=== PATIENT | female | born 1960 | race Caucasian/White ===

== ENCOUNTER 2017-05-09 08:45 | Emergency (ER) | payer BC ==
[2017-05-09 09:01] VITALS: TEMP 97.7
[2017-05-09] MEDS ORDERED: SODIUM CHLORIDE 0.9% 1,000 ML IV STA (09:27)
[2017-05-09] MEDS ORDERED: HYDROmorphone 1 MG/ML 1 ML SYRINGE IVP STA (09:34)
[2017-05-09] MEDS ORDERED: ONDANSETRON 4 MG/2 ML VIAL IVP STA (09:34)
--- NOTE | 2017-05-09 09:42 | ED ---
General Adult HPI - General Chief complaint: Headache Stated complaint: BACK, HEADACHE AND NECK PAIN, FEVER Time Seen by Provider: 05/09/17 09:17 Source: patient, RN notes reviewed Mode of arrival: wheelchair Limitations: no limitations - History of Present Illness Initial comments: Patient 56-year-old female who presents emergency room today with a chief complaint of back, neck, headache 2 days. Patient does admit that symptoms started 2 days ago SAME time. She states she's also felt nauseated. She states she's never had similar symptoms in the past. Denies any injury or trauma. Does admit that she feels like she was running a fever last night but there is no recorded temperature. Patient does admit that pain in the back of the neck along with a headache is worse with movements. Patient denies any other complaints or associated symptoms. Patient denies any recent chills, shortness of breath, chest pain, abdominal pain, nausea or vomiting, numbness or tingling, dysuria or hematuria, constipation or diarrhea, visual changes, or any other complaints. - Related Data Home Medications Medication Instructions Recorded Confirmed Aspirin 81 mg PO HS 05/09/17 05/09/17 Bisoprol/Hydrochlorothiazide [Ziac 1 tab PO HS 05/09/17 05/09/17 10-6.25 MG] Glucosam/Tomas-Msm1/C/Soto/Bosw 1 tab PO DAILY 05/09/17 05/09/17 [Glucosamine-Chondroitin Tablet] Levothyroxine Sodium [Synthroid] 100 mcg PO DAILY 05/09/17 05/09/17 Previous Rx's Medication Instructions Recorded Cyclobenzaprine [Flexeril] 10 mg PO TID #20 tab 05/09/17 Hydrocodone/Acetaminophen [Mangham 1 each PO Q6HR PRN #15 tab 05/09/17 5-325] Ibuprofen [Motrin] 600 mg PO Q6HR PRN #40 day 05/09/17 Allergies Allergy/AdvReac Type Severity Reaction Status Date / Time No Known Allergies Allergy Verified 05/09/17 12:10 Review of Systems ROS Statement: Those systems with pertinent positive or pertinent negative responses have been documented in the HPI. ROS Other: All systems not noted in ROS Statement are negative. Past Medical History Past Medical History: Hypertension, Thyroid Disorder History of Any Multi-Drug Resistant Organisms: None Reported Past Surgical History: Section Additional Past Surgical History / Comment(s): d & c Past Psychological History: No Psychological Hx Reported Smoking Status: Never smoker Past Alcohol Use History: Rare Past Drug Use History: None Reported General Exam - General Exam Comments Initial Comments: General: The patient is awake and alert, in no distress, and does not appear acutely ill. Eye: Pupils are equal, round and reactive to light, extra-ocular movements are intact. No nystagmus. There is normal conjunctiva bilaterally. No signs of icterus. Ears, nose, mouth and throat: There are moist mucous membranes and no oral lesions. Neck: The neck is supple, there is no tenderness or JVD. Cardiovascular: There is a regular rate and rhythm. No murmur, rub or gallop is appreciated. Respiratory: Lungs are clear to auscultation, respirations are non-labored, breath sounds are equal. No wheezes, stridor, rales, or rhonchi. Gastrointestinal: Soft, non-distended, non-tender abdomen without masses or organomegaly noted. There is no rebound or guarding present. No CVA tenderness. Bowel sounds are unremarkable. Musculoskeletal: Normal ROM, no tenderness. Strength 5/5. Sensation intact. Pulses equal bilaterally 2+. Neurological: A&O x 3. CN II-XII intact, There are no obvious motor or sensory deficits. Coordination appears grossly intact. Speech is normal. Skin: Skin is warm and dry and no rashes or lesions are noted. Psychiatric: Cooperative, appropriate mood & affect, normal judgment. Limitations: no limitations Course Vital Signs 05/09/17 05/09/17 05/09/17 08:58 10:00 11:00 Temperature 97.7 F Pulse Rate 70 60 65 Respiratory 18 18 20 Rate Blood Pressure 144/78 163/81 129/69 O2 Sat by Pulse 99 93 L 93 L Oximetry 05/09/17 12:07 Temperature Pulse Rate 63 Respiratory 20 Rate Blood Pressure 143/84 O2 Sat by Pulse 95 Oximetry Medical Decision Making - Medical Decision Making Patient's CT of the neck shows 1. No acute intracranial abnormality seen. 2. No acute fracture or malalignment of the cervical spine. There is moderate to advanced chronological changes especially in the mid to lower cervical spine. 3. Advair lungs the process, particularly on the left. Findings may need to equal syndrome and some palpitations. These results were discussed with the patient. Her labs been reviewed. Negative sed rate. CRP 10.6. Patient feeling better after pain medicine here in the emergency room. States she is able to move her back or neck freely at this time. States she's feeling much better. Patient's symptoms appear to be consistent with muscle skeletal. Case discussed with attending physician Dr. Wagner. Patient will be discharged home on anti-inflammatories, muscle relaxer and restricted Mangham to use as needed. - Lab Data Result diagrams: 05/09/17 09:58 05/09/17 09:58 Lab Results 05/09/17 05/09/17 05/09/17 Range/Units 09:58 09:58 09:58 WBC 8.7 (3.8-10.6) k/uL RBC 5.78 H (3.80-5.40) m/uL Hgb 15.8 (11.4-16.0) gm/dL Hct 45.7 (34.0-46.0) % MCV 79.2 L (80.0-100.0) fL MCH 27.4 (25.0-35.0) pg MCHC 34.6 (31.0-37.0) g/dL RDW 12.8 (11.5-15.5) % Plt Count 248 (150-450) k/uL Neutrophils % 78 % Lymphocytes % 16 % Monocytes % 4 % Eosinophils % 1 % Basophils % 1 % Neutrophils # 6.7 (1.3-7.7) k/uL Lymphocytes # 1.4 (1.0-4.8) k/uL Monocytes # 0.4 (0-1.0) k/uL Eosinophils # 0.0 (0-0.7) k/uL Basophils # 0.0 (0-0.2) k/uL ESR 13 (0-20) mm/hr Sodium 136 L (137-145) mmol/L Potassium 4.1 (3.5-5.1) mmol/L Chloride 99 (98-107) mmol/L Carbon Dioxide 26 (22-30) mmol/L Anion Gap 11 mmol/L BUN 13 (7-17) mg/dL Creatinine 0.80 (0.52-1.04) mg/dL Est GFR (MDRD) Af Amer >60 (>60 ml/min/1.73 sqM) Est GFR (MDRD) Non-Af >60 (>60 ml/min/1.73 sqM) Glucose 116 H (74-99) mg/dL Calcium 9.5 (8.4-10.2) mg/dL Total Bilirubin 0.7 (0.2-1.3) mg/dL AST 23 (14-36) U/L ALT 41 (9-52) U/L Alkaline Phosphatase 84 (38-126) U/L C-Reactive Protein 10.6 H (<10.0) mg/L Total Protein 7.2 (6.3-8.2) g/dL Albumin 4.3 (3.5-5.0) g/dL Urine Color Yellow Urine Appearance Clear (Clear) Urine pH 7.5 (5.0-8.0) Ur Specific [place] 1.014 (1.001-1.035) Urine Protein 1+ H (Negative) Urine Glucose (UA) Negative (Negative) Urine Ketones Negative (Negative) Urine Blood Negative (Negative) Urine Nitrite Negative (Negative) Urine Bilirubin Negative (Negative) Urine Urobilinogen <2.0 (<2.0) mg/dL Ur Leukocyte Esterase Small H (Negative) Urine RBC 1 (0-5) /hpf Urine WBC 8 H (0-5) /hpf Ur Squamous Epith Cells 4 (0-4) /hpf Disposition Clinical Impression: Back pain, Neck pain, Headache Disposition: HOME SELF-CARE Condition: Good Instructions: Acute Headache (ED) Additional Instructions: Please use medication as discussed. Please follow-up with family doctor in the next 2 days of symptoms have not improved. Please return to emergency room if the symptoms increase or worsen or for any other concerns. Prescriptions: Cyclobenzaprine [Flexeril] 10 mg PO TID #20 tab Hydrocodone/Acetaminophen [Mangham 5-325] 1 each PO Q6HR PRN #15 tab PRN Reason: Pain Ibuprofen [Motrin] 600 mg PO Q6HR PRN #40 day PRN Reason: Pain Referrals: Ellis Amin DO [Primary Care Provider] - 1-2 days Time of Disposition: 12:28
--- NOTE | 2017-05-09 10:34 | CT ---
EXAMINATION TYPE: CT brain enriqueta wo con DATE OF EXAM: 05/09/2017 COMPARISON: Brain 12/02/2011 HISTORY: 56-year-old female Headache and neck pain with fever CT DLP: Brain (943.80) and C-spine (398.10) mGycm Automated exposure control for dose reduction was used. Technique: Examination of the head was done in axial plane without intravenous contrast. Coronal and sagittal reconstructions performed. CT of the cervical spine was obtained in axial plane without intravenous injection of contrast mater ial. Coronal and sagittal reformatted images were obtained from the axial views for evaluation of f ractures, spinal alignment and canal. FINDINGS: Head: There is no evidence of acute intracranial hemorrhage, acute ischemic changes, mass, mass-effect, or extra-axial fluid collection. There is no effacement of cerebral sulci or basal subarachnoid cister ns. There is no hydrocephalus. There is no midline shift. Zuniga-white matter distinction is preserv ed. Divergent gaze suggesting underlying strabismus. Paranasal sinuses and mastoid air cells are well pne umatized. Cervical spine: No craniocervical junction abnormality, predental space widening, or prevertebral soft tissue swellin g. Reversal of the normal cervical lordosis but with preserved alignment. No acute fracture of the cervi michael spine. Moderate to advanced disc/endplate degenerative change particularly from C4 through C7 levels with di sc osteophyte complexes causing variable mild and moderate spinal canal stenoses. Scattered facet and uncovertebral joint degenerative change also present with variable moderate neura l foraminal stenosis. Very long styloid processes, particularly on the left, coronal image 20. Sagittal and coronal reformatted images confirm above findings. COMBINED IMPRESSION: 1. No acute intracranial abnormality seen. 2. No acute fracture or malalignment of the cervical spine. There are moderate to advanced chronologi c changes especially in the mid to lower cervical spine as above. 3. Very long styloid processes, particularly on the left. Findings may lead to [place] syndrome in some patients.
[2017-05-09 11:11] VITALS: RESP 20
[2017-05-09 11:12] LABS: Basophils % (A) 1 %; CH 26.3; CHCM 33.4; Eosinophils % (A) 1 %; HCT 45.7 % (34.0-46.0); HDW 2.56; HGB 15.8 gm/dL (11.4-16.0); Luc # (Auto) 0.12; Luc % (Auto) 1; Lymphocytes # (A) 1.4 k/uL (1.0-4.8); Lymphocytes % (A) 16 %; MCH 27.4 pg (25.0-35.0); MCHC 34.6 g/dL (31.0-37.0); MCV 79.2 fL (80.0-100.0); Mean Platelet Volume 6.8; Monocytes # (A) 0.4 k/uL (0-1.0); Monocytes % (A) 4 %; Neutrophils # (A) 6.7 k/uL (1.3-7.7); Neutrophils % (A) 78 %; RBC 5.78 m/uL (3.80-5.40); RDW 12.8 % (11.5-15.5); WBC 8.7 k/uL (3.8-10.6); WBC (Perox) 8.55
[2017-05-09 11:17] LABS: Appearance,Urine Clear (Clear); Bilirubin,Urine Negative (Negative); Glucose,Urine (UA) Negative (Negative); Ketones,Urine Negative (Negative); Leukocyte Esterase,Urine Small (Negative); Nitrite,Urine Negative (Negative); PH, Urine 7.5 (5.0-8.0); Particle Count 1700; Protein,Urine 1+ (Negative); RBC,Urine 1 /hpf (0-5); Specific Gravity,Urine 1.014 (1.001-1.035); Squamous Epithelial Cell,Urine 4 /hpf (0-4); UA Billing (MACRO vs. MICRO) MICRO; Urobilinogen,Urine <2.0 mg/dL (<2.0); WBC,Urine 8 /hpf (0-5)
[2017-05-09 11:24] LABS: ALT 41 U/L (9-52); AST 23 U/L (14-36); Alkaline Phosphatase 84 U/L (38-126); Anion Gap 11 mmol/L; Blood Urea Nitrogen 13 mg/dL (7-17); C Reactive Protein 10.6 mg/L (<10.0); Calcium 9.5 mg/dL (8.4-10.2); Carbon Dioxide 26 mmol/L (22-30); Chloride 99 mmol/L (98-107); Glucose 116 mg/dL (74-99); Non-African American GFR(MDRD) >60 (>60 ml/min/1.73 sqM); Potassium 4.1 mmol/L (3.5-5.1); Sodium 136 mmol/L (137-145); Total Bilirubin 0.7 mg/dL (0.2-1.3); Total Protein 7.2 g/dL (6.3-8.2)
[2017-05-09 12:08] VITALS: BP 143/84; PULSE 63
[2017-05-09 12:08] LABS: Erythrocyte Sedimentation Rate 13 mm/hr (0-20)
== END 2017-05-09 12:40 | disposition home or self-care (01) ==
LOC: EC 08:45
DX: R51 Headache (principal); M54.2 Cervicalgia; M54.9 Dorsalgia, unspecified; R50.9 Fever, unspecified; I10 Essential (primary) hypertension; E07.9 Disorder of thyroid, unspecified; Z79.82 Long term (current) use of aspirin; Z79.899 Other long term (current) drug therapy
CPT/HCPCS: 36415; 80053; 85652; 85025; 86140; 81001; 72125; 70450; 99284; 96374; 96375; 96361; J2405; J1170

== ENCOUNTER → 2019-08-30 | Outpatient (CLI) | payer BC ==
[2019-08-30 14:55] VITALS: BP 130/84; PULSE 93; RESP 18; TEMP 98.2; BMI 34.3
--- NOTE | 2019-08-30 17:49 | P.HPOB ---
History of Present Illness H&P Date: 08/30/19 Chief Complaint: The patient is here for her routine gynecologic exam and ma mmogram. This is a 59-year-old with an LNMP of 2013. The patient was last seen here in 2013 and states she discontinued her oral contraception shortly after that visit and states she had not had menstrual periods from that time until July of this year. Toward the end of July, she had 1 week of vaginal bleeding with slight tissue noted. When the bleeding stopped she noticed a yellowish discharge. She again started bleeding 08/13/2019 and this felt like a normal menstrual period. When this stopped, she again noticed a yellowish discharge. She has not had pelvic exams since 2013. Her bleeding started after sexual intercourse in July. The bleeding in August was not associated with sexual intercourse. She denies menstrual type cramping with the bleeding episodes. She denies using HRT or any supplements for menopausal symptoms. She still has occasional hot flashes but not like when her menstrual periods stopped 5 years ago. Review of Systems The patient has lost 19 pounds over the last 5 year. She denies respiratory, cardiac, or G.I. problems. Past Medical History Past Medical History: Hypertension, Thyroid Disorder Additional Past Medical History / Comment(s): Hypothyroidism. PAST [employer] HISTORY: She has no history of STDs. History of Any Multi-Drug Resistant Organisms: None Reported Past Surgical History: Section Additional Past Surgical History / Comment(s): d & c Past Psychological History: Anxiety Smoking Status: Never smoker Past Alcohol Use History: Rare (4 per year) Past Drug Use History: None Reported Additional History: She is . 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 - Past Family History Father Family Medical History: CVA/TIA Additional Family Medical History / Comment(s): (biological father did not have prostate CA as indicated in previous H&P). Mother Family Medical History: Cancer, Hypertension Additional Family Medical History / Comment(s): Lung cancer. Medications and Allergies Home Medications Medication Instructions Recorded Confirmed Type Aspirin 81 mg PO HS 05/09/17 08/30/19 History Bisoprol/Hydrochlorothiazide [Ziac 1 tab PO HS 05/09/17 08/30/19 History 10-6.25 MG] Ibuprofen [Motrin] 600 mg PO Q6HR PRN #40 day 05/09/17 08/30/19 Rx Levothyroxine Sodium [Synthroid] 100 mcg PO DAILY 05/09/17 08/30/19 History Dextroamphetamine/Amphetamine 30 mg PO TID 08/30/19 08/30/19 History [Adderall] Allergies Allergy/AdvReac Type Severity Reaction Status Date / Time No Known Allergies Allergy Verified 08/30/19 14:47 Exam Vital Signs Temp Pulse Resp BP Pulse Ox 08/30/19 14:50 98.2 F 93 18 130/84 93 L Intake and Output 08/30/19 08/30/19 08/30/19 06:59 14:59 22:59 Other: Weight 87.997 kg Height 5 feet 3 inches, weight 194 pounds, BMI 34.4. This is a well-developed well-nourished white female who is alert and oriented times 3 in no acute distress. HEENT: Within normal limits. NECK: Supple without mass or thyromegaly. CHEST AND LUNGS: Clear to auscultation. HEART: Regular rate and rhythm. BREASTS: Are without mass or discharge. AXILLARY EXAM: Negative for adenopathy. BACK: Negative for CVA tenderness. ABDOMEN: Soft, nontender, without palpable masses. PELVIC EXAM: Normal external genitalia with mild atrophy. Cervix has a brownish red mass protruding from the cervical os measuring approximately 1.5 x 1.5 cm. The attachment of the mass cannot be visualized. There is no unusual discharge. There was no gross blood upon initial inspection. See the procedure note below. There is no evidence of prolapse. The uterus is midposition, nongravid size and nontender. There are no palpable adnexal masses or tenderness. RECTAL EXAM: Rectovaginal exam is negative for mass or tenderness and is negative for occult blood. EXTREMITIES: Nontender. Procedure note: The mass protruding from the cervix was gently grasped with a ring forcep instrument. An attempt was made to visualize the attachment and to see if this was on a stalk. I was unable to see the attachment. An attempt to rotate the mass to see if it could be removed from a thin stalk was made. The rotation of the mass was painful for the patient and this was discontinued. With the patient's permission, the mass was biopsied with a cervical biopsy instrument. The small tissue was sent for pathological examination. The mass had small bleeding which was made hemostatic with Monsel solution. The patient tolerated the procedure well. The estimated blood loss 2 mL. IMPRESSION: 1. 59-year-old menopausal female with cervical mass protruding from the external os approximately 1.5 x 1.5 cm. Differential diagnosis will include cervical polyp, Cervical malignancy, endocervical mass, pedunculated endometrial mass, and pedunculated uterine fibroid. The mass is of uncertain behavior and can be benign or malignant. 2. 2 episodes of postmenopausal bleeding during the past 1 month. I feel that this is likely to be related to the cervical mass that differential diagnosis will also include endometrial bleeding. PLAN: 1. Pap smear was performed. 2. Self breast awareness was discussed with the patient. 3. Mammogram was done today. 4. Await cervical mass biopsy pathology. If benign, she will be referred to a local jacket changer for removal of the mass which will probably need to be done in the operating room. If malignancy, the patient will be referred to [employer] oncologist. Additional workup may need to be done such as endometrial sampling because of the postmenopausal bleeding. We will determine this after the cervical mass pathology is back. 5. The patient was instructed to call if she has heavy bleeding, unusual pain, fever or problems.
--- NOTE | 2019-09-02 10:52 | MM ---
Reason for exam: screening (asymptomatic). Last mammogram was performed 3 years and 10 months ago. History: Patient is postmenopausal and had first child at age 38. Taking hormonal contraceptives for 30 years. Physical Findings: A clinical breast exam by your physician is recommended on an annual basis and results should be correlated with mammographic findings. MG 3D Screening Mammo W/Cad Bilateral CC and MLO view(s) were taken. Prior study comparison: October 19, 2015, bilateral MG 3d diag mammo w/cad [facility]. September 09, 2013, [facility] DIGITAL LEFT BREAST MAMMOGRAM w/CAD. There are scattered fibroglandular densities. No significant changes when compared with prior studies. ASSESSMENT: Benign, BI-RAD 2 RECOMMENDATION: Routine screening mammogram of both breasts in 1 year.
--- NOTE | 2019-09-05 15:35 | P.PN ---
Progress Note - Text Progress Note Date: 09/05/19 Pathology from cervical mass biopsy from 08/30/19 was a benign endometrial/lower uterine segment polyp. Await pap smear. I have notified the patient by phone of the biopsy pathology. I will refer her after the pap result is back for H/S D&C with polypoid mass removal.
== END | disposition home or self-care (01) ==
LOC: WWCWWP 14:29
PROVIDERS: ATTEND Obstetrics & Gynecology
DX: Z12.31 Encounter for screening mammogram for malignant neoplasm of breast (principal); N88.8 Other specified noninflammatory disorders of cervix uteri
CPT/HCPCS: 77063; 77067; 88305

== ENCOUNTER → 2019-10-18 | Outpatient (CLI) | payer BC ==
[2019-10-18 17:41] LABS: Basophils # (A) 0.1 k/uL (0-0.2); Basophils % (A) 1 %; Eosinophils # (A) 0.2 k/uL (0-0.7); Eosinophils % (A) 3 %; HCT 46.1 % (34.0-46.0); HGB 14.7 gm/dL (11.4-16.0); Lymphocytes # (A) 2.2 k/uL (1.0-4.8); Lymphocytes % (A) 27 %; MCH 26.6 pg (25.0-35.0); MCHC 31.9 g/dL (31.0-37.0); MCV 83.4 fL (80.0-100.0); Mean Platelet Volume 7.5; Monocytes # (A) 0.5 k/uL (0-1.0); Monocytes % (A) 6 %; Neutrophils # (A) 4.9 k/uL (1.3-7.7); Neutrophils % (A) 61 %; Platelet Count 249 k/uL (150-450); RBC 5.53 m/uL (3.80-5.40); RDW 13.1 % (11.5-15.5)
== END | disposition home or self-care (01) ==
LOC: LABPAT 16:35
PROVIDERS: ATTEND Obstetrics & Gynecology
DX: Z01.818 Encounter for other preprocedural examination (principal); N84.0 Polyp of corpus uteri; N95.0 Postmenopausal bleeding
CPT/HCPCS: 36415; 85025; 93005

== ENCOUNTER 2019-10-21 08:10 | Day surgery (SDC) | payer BC ==
[2019-10-20 08:25] VITALS: BMI 34.2
[~2019-10-21 08:10] MED LIST: DEXAMETHASONE SOD PHOSPHATE 10 MG/ML 1 ML VIAL IV ONE; HYDROmorphone 0.5 MG/0.5 ML SYRINGE IVP PRN; LACTATED RINGERS 1,000 ML IV SCH; MIDAZOLAM 2 MG/2 ML VIAL IV PRN; ONDANSETRON 4 MG/2 ML VIAL IVP ONE; Pre Op ABX Message 1 EACH MISC MISCELLANE ONE; SCOPOLAMINE 1.5MG/72HR PATCH TRANSDERM ONE
[2019-10-21] MEDS ORDERED: PROPOFOL 10 MG/ML 20 ML VIAL IV ONE (09:24)
[2019-10-21] MEDS ORDERED: fentaNYL (PF) 50 MCG/ML 2 ML AMP ONE (09:24)
[2019-10-21] MEDS ORDERED: KETOROLAC 30 MG/ML 1 ML VIAL ONE (09:24)
[2019-10-21] MEDS ORDERED: LIDOCAINE 1% INJ 10MG/ML (20 ML MDV) ONE (09:24)
[2019-10-21] MEDS ORDERED: MIDAZOLAM 2 MG/2 ML VIAL ONE (09:24)
[2019-10-21] MEDS ORDERED: KETOROLAC 30 MG/ML 1 ML VIAL IVP PRN (09:31)
[2019-10-21] MEDS ORDERED: SIMETHICONE 80 MG CHEWABLE PO PRN (09:31)
[2019-10-21] MEDS ORDERED: METOCLOPRAMIDE 5 MG/ML 2 ML VIAL IVP PRN (09:31)
[2019-10-21] MEDS ORDERED: IBUPROFEN 600 MG TAB PO PRN (09:31)
[2019-10-21] MEDS ORDERED: diphenhydrAMINE 50 MG/ML 1 ML VIAL IVP PRN (09:31)
[2019-10-21] MEDS ORDERED: ONDANSETRON 4 MG/2 ML VIAL IVP PRN (09:31)
[2019-10-21] MEDS ORDERED: Acetaminophen-Codeine 300-30mg TAB PO PRN ×2 (09:31)
[2019-10-21] MEDS ORDERED: LACTATED RINGERS 1,000 ML IV SCH (09:45)
--- NOTE | 2019-10-21 10:01 | P.OP ---
Date of Procedure: 10/21/19 Preoperative Diagnosis: #1. Postmenopausal bleeding #2. Endometrial polyp Postoperative Diagnosis: Same Procedure(s) Performed: #1. Diagnostic hysteroscopy #2. Endometrial polypectomy #3. D&C Anesthesia: other (Gen. by LMA) Surgeon: Tristan Goncalves Estimated Blood Loss (ml): 15 IV fluids (ml): 200 Urine output (ml): 100 Pathology: other (Endometrial polyp and curettings) Condition: stable Disposition: PACU Operative Findings: Preoperative pelvic examination demonstrated a roughly 4 week midplane mobile normal shaped uterus with normal adnexa bilaterally. Intraoperatively, the polyp was no longer visible in the cervix. The uterus sounded to 8 cm. Using the hysteroscope, the polyp was seen to be extending the entire length of the fundus with its been a site in the fundus. It was removed in multiple fragments with both polyp forceps and ring forceps. Gianna curettage demonstrated the typical gritty texture of the uterus. Description of Procedure: The patient was prepped and draped in usual fashion after general anesthesia was administered by the anesthesiologist. A weighted speculum was placed and the anterior lip the cervix was grasped with a single-tooth tenaculum. The bladder was draining approximately 100 mL of clear drake urine. The uterus was sounded to 8 cm as noted above. Serial dilation was carried out and the cervix is noted to be well dilated prior to beginning. The hysteroscope was placed and the polyp was noted as above. The remainder of the cavity could not be well evaluated as the polyp filled most of the cavity. A ring forceps was placed into the cavity of the uterus and the polyp grasped. Using consecutive twisting motion, the polyp was removed in multiple fragments as it did not want to release completely. After several passes with the ring forceps, a polyp forceps was placed which removed smaller fragments. A sharp curette was then introduced and the uterus circumferentially curetted onto a Telfa placed in the vagina. The typical gritty texture was encountered throughout. The scope was replaced into the endometrial cavity and there was noted to be still some polypoid tissue in the fundus. As a result, the ring forceps was reintroduced and the tissue grasped and removed into further fairly large fragments. Repeat curettage again demonstrated normal gritty texture. All instrumentation was then removed. Estimated blood loss for the entire case was 15 mL or less. There were no complications. All sponge, instrument, needle counts were correct. The patient tolerated the procedure well and proceeded to the recovery room in stable condition.
[2019-10-21 10:15] VITALS: TEMP 69.8
[2019-10-21] MEDS ORDERED: ACETAMINOPHEN TAB 500 MG TAB PO ONE (11:20)
[2019-10-21 11:40] VITALS: BP 117/56; PULSE 61; RESP 18
== END 2019-10-21 12:19 | disposition home or self-care (01) ==
LOC: OR 08:10
PROVIDERS: ATTEND Obstetrics & Gynecology
DX: N84.0 Polyp of corpus uteri (principal); N95.0 Postmenopausal bleeding; I10 Essential (primary) hypertension; Z82.49 Family history of ischemic heart disease and other diseases of the circulatory system; Z82.3 Family history of stroke; Z80.1 Family history of malignant neoplasm of trachea, bronchus and lung; E07.9 Disorder of thyroid, unspecified; F41.9 Anxiety disorder, unspecified; F90.9 Attention-deficit hyperactivity disorder, unspecified type; Z79.890 Hormone replacement therapy; Z79.1 Long term (current) use of non-steroidal anti-inflammatories (NSAID); Z79.82 Long term (current) use of aspirin; Z79.899 Other long term (current) drug therapy
CPT/HCPCS: 58558; 88305; J2250; J1100; J2405; J2001; J3010; J1885; J2704; J1170

== ENCOUNTER → 2020-11-08 | Outpatient (CLI) | payer BC ==
--- NOTE | 2020-11-08 09:47 | MM ---
Reason for exam: clinical finding. Last mammogram was performed 1 year and 2 months ago. History: Patient is postmenopausal and had first child at age 38. Taking hormonal contraceptives for 30 years. Physical Findings: Nurse did not find any significant physical abnormalities on exam. MG 3D Diag Mammo W/Cad [facility] Bilateral CC and MLO view(s) were taken. Prior study comparison: August 30, 2019, bilateral MG 3d screening mammo w/cad. October 19, 2015, bilateral MG 3d diag mammo w/cad [facility]. There are scattered fibroglandular densities. No significant new findings when compared with previous films. These results were verbally communicated with the patient and result sheet given to the patient on 11/08/20. ASSESSMENT: Negative, BI-RAD 1 RECOMMENDATION: Routine screening mammogram of both breasts in 1 year. Manage on a clinical basis with regard to palpable abnormality.
== END | disposition home or self-care (01) ==
LOC: RADMAMWWP 07:36
PROVIDERS: ATTEND Family Medicine
DX: N63.10 Unspecified lump in the right breast, unspecified quadrant (principal); N63.20 Unspecified lump in the left breast, unspecified quadrant; N64.4 Mastodynia
CPT/HCPCS: 77062; 77066

== ENCOUNTER → 2021-08-12 | Outpatient (CLI) | payer BC ==
[2021-08-12 16:41] LABS: Basophils # (A) 0.1 k/uL (0-0.2); Basophils % (A) 1 %; Eosinophils # (A) 0.4 k/uL (0-0.7); Eosinophils % (A) 4 %; HCT 46.8 % (34.0-46.0); HGB 16.2 gm/dL (11.4-16.0); Lymphocytes # (A) 2.2 k/uL (1.0-4.8); Lymphocytes % (A) 22 %; MCH 27.4 pg (25.0-35.0); MCHC 34.6 g/dL (31.0-37.0); MCV 79.1 fL (80.0-100.0); Monocytes # (A) 0.4 k/uL (0-1.0); Monocytes % (A) 4 %; Neutrophils # (A) 6.8 k/uL (1.3-7.7); Neutrophils % (A) 68 %; Platelet Count 288 k/uL (150-450); RBC 5.92 m/uL (3.80-5.40); RDW 13.2 % (11.5-15.5)
== END | disposition home or self-care (01) ==
LOC: LABPAT 16:15
PROVIDERS: ATTEND Obstetrics & Gynecology
DX: Z01.818 Encounter for other preprocedural examination (principal); I10 Essential (primary) hypertension; D25.9 Leiomyoma of uterus, unspecified; R94.31 Abnormal electrocardiogram [ECG] [EKG]
CPT/HCPCS: 85025; 93005

== ENCOUNTER 2021-08-16 07:54 | Day surgery (SDC) | payer BC ==
[2021-08-14 10:34] VITALS: BMI 34.5
[~2021-08-16 07:54] MED LIST changes: -DEXAMETHASONE SOD PHOSPHATE 10 MG/ML 1 ML VIAL IV ONE; +DEXAMETHASONE SOD PHOSPHATE 4 MG/ML 1 ML VIAL IV ONE; -Pre Op ABX Message 1 EACH MISC MISCELLANE ONE
[2021-08-16] MEDS ORDERED: MIDAZOLAM 2 MG/2 ML VIAL IVP ONE (08:59)
[2021-08-16] MEDS ORDERED: KETOROLAC 15 MG/ML 1 ML VIAL ONE (09:18)
[2021-08-16] MEDS ORDERED: LIDOCAINE 1% INJ 10MG/ML (20 ML MDV) ONE (09:18)
[2021-08-16] MEDS ORDERED: MIDAZOLAM 2 MG/2 ML VIAL ONE (09:18)
[2021-08-16] MEDS ORDERED: PROPOFOL 10 MG/ML 20 ML VIAL IV ONE (09:18)
[2021-08-16] MEDS ORDERED: fentaNYL (PF) 50 MCG/ML 2 ML AMP ONE (09:18)
[2021-08-16 09:59] VITALS: TEMP 97
[2021-08-16] MEDS ORDERED: METOCLOPRAMIDE 5 MG/ML 2 ML VIAL IVP PRN (10:01)
[2021-08-16] MEDS ORDERED: IBUPROFEN 600 MG TAB PO PRN (10:01)
[2021-08-16] MEDS ORDERED: SIMETHICONE 80 MG CHEWABLE PO PRN (10:01)
[2021-08-16] MEDS ORDERED: KETOROLAC 15 MG/ML 1 ML VIAL IVP PRN (10:01)
[2021-08-16] MEDS ORDERED: ONDANSETRON 4 MG/2 ML VIAL IVP PRN (10:01)
[2021-08-16] MEDS ORDERED: diphenhydrAMINE 50 MG/ML 1 ML VIAL IVP PRN (10:01)
[2021-08-16] MEDS ORDERED: Acetaminophen-Codeine 300-30mg TAB PO PRN ×2 (10:01)
--- NOTE | 2021-08-16 10:07 | P.OP ---
Date of Procedure: 08/16/21 Preoperative Diagnosis: #1. Prolapsing intrauterine mass #2. Postmenopausal bleeding Postoperative Diagnosis: Same Procedure(s) Performed: #1. Removal/excision of prolapsing uterine mass #2. Endometrial curettage Anesthesia: other (Gen. by LMA) Surgeon: Tristan Goncalves Estimated Blood Loss (ml): 10 IV fluids (ml): 200 Urine output (ml): 50 Pathology: other (Prolapsing uterine mass, probable endometrial polyp) Condition: stable Disposition: PACU Operative Findings: Preoperatively, placement of a weighted speculum again demonstrated the mass sitting within the cervix prolapsing through though it appears to have regressed somewhat from presentation several days ago. It was removed without difficulty and appeared to have a very narrow polypoid stalk at its and therefore was thought to have been removed completely. Curettage produced a small amount of further tissue which was included with the specimen. There was no significant ongoing bleeding. The cervix was dilated to approximately 2 cm. Description of Procedure: The patient was prepped and draped in usual fashion after general anesthesia was administered by the anesthesiologist. A weighted speculum was placed and the prolapsing mass noted within and through the cervix. It was grasped with a ring forceps and gentle traction applied as well as a corkscrew motion at which time it was removed without difficulty and appeared to have a very narrow base and therefore was thought to been completely removed. There was no significant ongoing bleeding. A polyp forceps was introduced to see if further polyps or other tissue could be removed and was unsuccessful in removing any significant amounts of tissue. A sharp curette was then introduced into the cavity and the entire in vitro cavity is thoroughly and circumferentially curetted with the tissue returned onto a Telfa in the vagina and included with the specimen. There was minimal further tissue produced. All instrumentation was then removed and there was no significant ongoing bleeding from either the tenaculum site or the cervix itself. As her blood loss for the case was approximately 10 mL or less. There were no complications. All sponge, instrument, needle counts were correct. The patient tolerated the procedure well and proceeded to the recovery room in stable condition.
[2021-08-16] MEDS ORDERED: LACTATED RINGERS 1,000 ML IV SCH (10:15)
[2021-08-16] MEDS ORDERED: HYDROcodone/APAP 5-325MG 1 EACH TAB ONE (11:05)
[2021-08-16 11:43] VITALS: BP 137/82; PULSE 72; RESP 18
== END 2021-08-16 12:03 | disposition home or self-care (01) ==
LOC: OR 07:54
PROVIDERS: ATTEND Obstetrics & Gynecology
DX: N84.0 Polyp of corpus uteri (principal); F41.9 Anxiety disorder, unspecified; I10 Essential (primary) hypertension; E07.9 Disorder of thyroid, unspecified; Z98.891 History of uterine scar from previous surgery; Z98.890 Other specified postprocedural states; Z82.49 Family history of ischemic heart disease and other diseases of the circulatory system; Z82.3 Family history of stroke; Z80.1 Family history of malignant neoplasm of trachea, bronchus and lung; Z79.890 Hormone replacement therapy; Z79.899 Other long term (current) drug therapy
CPT/HCPCS: 88305; 57135; J2250; J1100; J0690; J2405; J2001; J3010; J1885; J2704

== ENCOUNTER → 2024-05-03 | Outpatient (CLI) | payer OTHER ==
[2024-05-03 18:49] LABS: Basophils # (A) 0.05 X 10*3/uL (0.00-0.10); Basophils % (A) 0.6 %; Eosinophils # (A) 0.29 X 10*3/uL (0.04-0.35); Eosinophils % (A) 3.4 %; HCT 47.1 % (37.2-46.3); HGB 15.3 g/dL (12.0-15.0); Lymphocytes # (A) 2.21 X 10*3/uL (0.90-5.00); Lymphocytes % (A) 25.6 %; MCHC 32.5 g/dL (32.0-37.0); MCV 80.1 FL (80.0-97.0); Mean Platelet Volume 9.3 FL (9.5-12.2); Monocytes # (A) 0.67 X 10*3/uL (0.20-1.00); Monocytes % (A) 7.8 %; NRBC Per 100 WBC 0 X 10*3/uL (0.00-0.01); Neutrophils # (A) 5.37 X 10*3/uL (1.80-7.70); Neutrophils % (A) 62.3 %; Platelet Count 284 X 10*3/uL (140-440); RBC 5.88 X 10*6/uL (4.10-5.20); RDW 13.2 % (11.5-14.5); WBC 8.62 X 10*3/uL (4.50-10.00)
[2024-05-03 19:13] LABS: Blood Urea Nitrogen 17.6 mg/dL (9.0-27.0); Carbon Dioxide 26.2 mmol/L (21.6-31.8); Chloride 103 mmol/L (96-109); Glucose 130 mg/dL (70-110); Potassium 3.9 mmol/L (3.5-5.5); Sodium 141 mmol/L (135-145)
== END | disposition home or self-care (01) ==
LOC: LABPAT 15:51
PROVIDERS: ATTEND Obstetrics & Gynecology
DX: Z01.818 Encounter for other preprocedural examination (principal); I10 Essential (primary) hypertension; N95.0 Postmenopausal bleeding; N84.0 Polyp of corpus uteri
CPT/HCPCS: 80051; 82565; 82947; 84520; 85025; 86850; 86900; 86901; 87086; 93005

== ENCOUNTER 2024-05-12 05:51 | Day surgery (SDC) | payer OTHER ==
--- NOTE | 2024-05-11 23:36 | HP ---
HISTORY AND PHYSICAL HISTORY OF PRESENT ILLNESS: The patient is a 63-year-old 3, para 1-0-2-1, who presents to the office with complaints of recurrent postmenopausal bleeding. She was initially seen for this approximately 2 to 3 years ago at which time she was found to have a prolapsing uterine fibroid which was removed and the findings were benign. She did well until the bleeding resumed approximately 2 months ago. She is continuing to have mucus discharge with pbpovnd-ca-lznloela blood on a regular basis. Given the return of bleeding and possibly return of prolapsing submucous fibroid, she has requested definitive therapy with hysterectomy. Her examination bears that she is a best candidate for a robotic approach. PAST MEDICAL HISTORY: Significant for history of anxiety. She also had a cervical and endometrial polyp. She has history of hypertension and she has some thyroid abnormalities. PAST SURGICAL HISTORY: Significant for section as well as for D and C. She additionally had hysteroscopy with D and C and polypectomy in 2019. There have been no major anesthetic concerns. OBSTETRICAL HISTORY: 3, para 1-0-2-1 with 1 term section and 2 early miscarriages. Method of contraception is menopause. GYNECOLOGIC HISTORY: Unremarkable except as noted in history of present illness. FAMILY HISTORY: Noncontributory. 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 She is a nonsmoker and reports occasional alcohol, but no other social concerns. CURRENT MEDICATIONS: 1. Adderall 30 mg daily. 2. Bisoprolol/hydrochlorothiazide 10/6.25 mg daily. 3. Levothyroxine 100 mcg daily. ALLERGIES: No known drug allergies. REVIEW OF SYSTEMS: Is confined to history of present illness. PHYSICAL EXAMINATION: VITAL SIGNS: Stable. The patient is afebrile. GENERAL: This is a well-developed, well-nourished white female, in no acute distress. HEART: Has a regular rhythm and rate without murmur. LUNGS: Clear to auscultation bilaterally in all asencio. ABDOMEN: Gravid, nondistended, has normoactive bowel sounds, soft, nontender, and without any palpable masses, hepatosplenomegaly, or hernias. EXTREMITIES: Without any cyanosis, clubbing, or edema and are nontender to palpation bilaterally. PELVIC: Examination demonstrates normal external genitalia and BUS with normal vaginal mucosa and cervix. There is roughly 1 cm probable polyp in the cervix which was unable to be removed secondary to the patient's discomfort and may represent a prolapsing fibroid. The uterus itself is atrophic in size, mid plane, mobile, nontender, normal in shape. The adnexa are normal and nontender without mass bilaterally. ASSESSMENT AND PLAN: Recurrent postmenopausal bleeding with cervical polyp versus prolapsing fibroid: We have discussed potential options given the recurrence and the uncertainty as to whether the polyp may be of endometrial origin or even a prolapsing fibroid again, the patient has requested definitive therapy. Examination bears out a da Misael approach. As a result, we are planning da Misael robotically assisted laparoscopic hysterectomy with bilateral salpingo-oophorectomy at the patient's request to be followed by diagnostic cystoscopy. The risks and complications of the procedure have been discussed at length including the risks for bleeding, bleeding requiring transfusion, infection, injury to local structures to specifically include the bowel, bladder, and ureters. She does have a history of a section in the past. We additionally discussed injuries that are unique to da Misael surgery to specifically include thermal injury and the potential for vaginal cuff dehiscence. She has understood all of this and has agreed to proceed. We are scheduled for the above procedures on the morning of 05/12/2024 for the diagnoses as outlined above. MMODL / IJN: [id number] /
[~2024-05-12 05:51] MED LIST changes: -DEXAMETHASONE SOD PHOSPHATE 4 MG/ML 1 ML VIAL IV ONE; -HYDROmorphone 0.5 MG/0.5 ML SYRINGE IVP PRN; -LACTATED RINGERS 1,000 ML IV SCH; +LIDOCAINE 1% (10MG/ML) FOR IV START INTRADERMA PRN; -MIDAZOLAM 2 MG/2 ML VIAL IV PRN; -ONDANSETRON 4 MG/2 ML VIAL IVP ONE; -SCOPOLAMINE 1.5MG/72HR PATCH TRANSDERM ONE
[2024-05-12] MEDS: LACTATED RINGERS 1,000 ML IV ONE (06:12)
[2024-05-12] MEDS: LACTATED RINGERS 1,000 ML IV SCH ×2 (06:50→20:16)
[2024-05-12] MEDS: fentaNYL (PF) 50 MCG/ML 2 ML AMP IVP ONE (06:51)
[2024-05-12] MEDS: MIDAZOLAM 2 MG/2 ML VIAL IVP ONE (06:51)
[2024-05-12] MEDS ORDERED: HYDROmorphone 0.5 MG/0.5 ML SYRINGE IVP PRN (07:00)
[2024-05-12] MEDS ORDERED: MIDAZOLAM 2 MG/2 ML VIAL IV PRN (07:00)
[2024-05-12] MEDS ORDERED: fentaNYL (PF) 50 MCG/ML 2 ML AMP IVP PRN (07:00)
[2024-05-12] MEDS: DEXAMETHASONE SOD PHOSPHATE 4 MG/ML 1 ML VIAL IV ONE (07:06)
[2024-05-12] MEDS: ONDANSETRON 4 MG/2 ML VIAL IVP ONE (07:06)
--- NOTE | 2024-05-12 07:17 | P.ANPRN ---
Procedure Note - Anesthesia - Epidural/Spinal Spinal Time Out Performed: Yes Date of Procedure: 05/12/24 Procedure Start Time: 06:50 Procedure Stop Time: 06:55 Location of Patient: PreOp Indication: Acute Post-Operative Pain, Analgesia, Requested by Surgeon Sedation Type: Sedate with meaningful contact maintained Preparation: Sterile Prep Position: Sitting Catheter: None Needle Guage: 22 Narrative: Duramorph 0.3mg intrathecally Blood Aspirated: No Pain Paresthesia on Injection Noted: No
[2024-05-12] MEDS ORDERED: NEOSTIGMINE 1 MG/ML 10 ML VIAL ONE (07:30)
[2024-05-12] MEDS ORDERED: PHENYLEPHRINE 10 MG/ML VIAL ONE (07:30)
[2024-05-12] MEDS ORDERED: ROCURONIUM 10 MG/ML (5 ML VIAL) IV ONE (07:30)
[2024-05-12] MEDS ORDERED: PROPOFOL 10 MG/ML 20 ML VIAL IV ONE (07:30)
[2024-05-12] MEDS ORDERED: MORPHINE SULFATE (PF) 0.3 MG/0.3 ML SYR ONE (07:30)
[2024-05-12] MEDS ORDERED: SUCCINYLCHOLINE CHLORIDE 200 MG/10 ML VIAL IV ONE (07:30)
[2024-05-12] MEDS ORDERED: GLYCOPYRROLATE 0.2 MG/ML 2 ML VIAL ONE (07:30)
[2024-05-12] MEDS ORDERED: KETAMINE HCL IN 0.9 % NACL 50 MG/5 ML SYRINGE ONE (07:30)
[2024-05-12] MEDS ORDERED: fentaNYL (PF) 50 MCG/ML 2 ML AMP ONE (07:30)
[2024-05-12] MEDS ORDERED: MIDAZOLAM 2 MG/2 ML VIAL ONE (07:30)
[2024-05-12] MEDS ORDERED: LIDOCAINE 1% INJ 10MG/ML (20 ML MDV) ONE (07:30)
[2024-05-12] MEDS: BUPIVACAINE (PF) 0.25% 30 ML VIAL SQ ONE ×2 (08:06→09:25)
[2024-05-12] MEDS ORDERED: Acetaminophen-Codeine 300-30mg TAB PO PRN (09:20)
[2024-05-12] MEDS ORDERED: SIMETHICONE 80 MG CHEWABLE PO PRN (09:20)
[2024-05-12] MEDS ORDERED: ONDANSETRON 4 MG/2 ML VIAL IVP PRN (09:20)
[2024-05-12] MEDS ORDERED: METOCLOPRAMIDE 5 MG/ML 2 ML VIAL IVP PRN (09:20)
--- NOTE | 2024-05-12 09:32 | P.OP ---
Date of Procedure: 05/12/24 Preoperative Diagnosis: #1. Recurrent postmenopausal bleeding #2. Endometrial versus endocervical polyp Postoperative Diagnosis: Same Procedure(s) Performed: #1. Da Misael robotically assisted laparoscopic hysterectomy with bilateral salpingo-oophorectomy #2. Diagnostic cystoscopy Anesthesia: CARMEN Surgeon: Tristan Goncalves Back Stayer #1: Olivia Oh Estimated Blood Loss (ml): 25 IV fluids (ml): 600 Urine output (ml): 50 Pathology: other (Uterus, tubes, and ovaries) Condition: stable Disposition: PACU Operative Findings: Preoperative pelvic examination demonstrated an atrophic midplane mobile normal shaped uterus with polyp present in the cervix of unclear endocervical versus endometrial origin. The uterus sounded to 8 cm. A Vcare uterine manipulator was used with a medium cup. The uterus, tubes, and ovaries were removed without difficulty. Using the cystoscope, the dome of the bladder appeared normal and the bilateral ureters were seen peristalsing. From the laparoscopic perspect nazia, the dome of the bladder was also intact. Description of Procedure: The patient was prepped and draped in usual fashion after general tracheal anesthesia was administered by the anesthesiologist. A weighted speculum was placed in the anterior lip of the cervix grasped with a single-tooth tenaculum. There was a polyp noted in the cervix as noted above. The uterus was sounded to 8 cm and serial dilation carried out to admit a Vcare uterine manipulator which was placed in standard fashion with a medium cup. The bladder then was catheterized with a Brothers catheter. Attention was turned to the abdomen where a site was selected approximately 2 to 3 cm above the umbilicus in the midline where an 8 mm incision was made the transverse plane along insertion of an 8 mm optical da Misael port under direct visualization not difficulty. A pneumoperitoneum was then infused. A site was selected approximately 10 to 12 cm lateral and 4 cm inferior in the right lower quadrant where another 8 mm incision was made in the transverse plane along insertion of an 8 mm da Misael port under direct visualization without difficulty. A mirroring port was placed in the left lower quadrant. The area between the left lower quadrant port and the optical port was bisected and the site selected approximately 4 cm above the optical port where 10 mm incision was made the transverse plane along insertion of a 10 mm information assistant port under direct visualization. The robot was then docked to the patient and the left arm loaded with the [place] bipolar cautery forceps while the right arm was loaded with a monopolar cautery scissors. At the console, I proceeded to cauterize and then cut the left infundibulopelvic ligament following beneath the tube down to the level of the round ligament which was then transected after cutting and cauterizing. Uterine vasculature was skeletonized to some extent and the bladder flap was created across to the midline. Similar operations were carried out on the right side without difficulty. The bladder was reflected distally. Initial attempts to identify the cup failed and further reflection of the bladder flap then identified it below the area where was initially thought to be located. The uterus was anteverted and the vagina sealed with a laparotomy sponge. The scissors were utilized to open the vagina sharply with cautery along the vaginal cup which was then followed circumferentially around the entire cervix to remove the uterus which was then removed easily into the vagina. Vagina was then repacked with a laparotomy sponge. The scissors were removed and replaced with a laparoscopic suturing device. A stitch of 0 Stratafix suture was passed into the abdomen which was then utilized to close the vaginal cuff from angle to angle with running serial bites. Several steps backward were made from the last angle in standard fashion. A stitch was then removed without difficulty. Irrigation was carried out and there was no significant ongoing bleeding anywhere. I then returned to the patient and remove the Brothers catheter allowing placement of a diagnostic cystoscope. The bladder was filled with sterile saline and the dome of the bladder examined from both the laparoscopic and cystoscopic perspective and found to be undamaged. The bilateral ureteral Helex were located and both seen peristalsing. The cystoscope was then removed and the Brothers catheter replaced. While performing cystoscopy, the robot was undocked and the ports removed. The entire pneumoperitoneum was evacuated through the ports and the skin incisions closed with interrupted subcuticular stitches of 4-0 Vicryl followed by half-inch Steri-Strips placed with Mastisol. Incisions were infused with a total of 10 cc of quarter percent Marcaine without epinephrine equally divided between the 4 incisions. Estimated blood loss for the case was approximately 25 cc. There were no complications. All sponge, instrument, and needle counts were correct. The patient tolerated the procedure well and proceeded to the recovery room in stable condition.
[2024-05-12] MEDS: IV FLUID CONTINUATION 1,000 ML IV ONE (10:46)
[2024-05-12] MEDS: KETOROLAC 15 MG/ML 1 ML VIAL IVP PRN (11:43)
[2024-05-12 12:09] VITALS: RESP 16
[2024-05-12] MEDS: Acetaminophen-Codeine 300-30mg TAB PO PRN (13:37)
[2024-05-12] MEDS: diphenhydrAMINE 50 MG/ML 1 ML VIAL IVP PRN (16:18)
[2024-05-12] MEDS: SENNOSIDES-DOCUSATE SODIUM 1 EACH TAB PO SCH (20:18)
--- NOTE | 2024-05-13 06:29 | P.PN ---
Progress Note - Text 05/13/24 602am 63-year-old female status post vaginal hysterectomy. Patient seen and evaluated for postop pain control, she has a VAS of 3 with no complaint of nausea vomiting or pruritus
[2024-05-13 08:13] VITALS: BP 138/78; PULSE 86; TEMP 98
[2024-05-13 08:36] LABS: Basophils % (A) 0 %; Eosinophils # (A) 0.1 k/uL (0-0.7); Eosinophils % (A) 1 %; HCT 42.6 % (34.0-46.0); HGB 13.7 gm/dL (11.4-16.0); Lymphocytes # (A) 1.9 k/uL (1.0-4.8); Lymphocytes % (A) 16 %; MCH 26.7 pg (25.0-35.0); MCHC 32.1 g/dL (31.0-37.0); Mean Platelet Volume 7.9; Monocytes # (A) 0.8 k/uL (0-1.0); Monocytes % (A) 7 %; Neutrophils # (A) 8.6 k/uL (1.3-7.7); Neutrophils % (A) 75 %; Platelet Count 259 k/uL (150-450); RBC 5.14 m/uL (3.80-5.40); RDW 13.5 % (11.5-15.5); WBC 11.6 k/uL (3.8-10.6)
[2024-05-13] MEDS ORDERED: ACETAMINOPHEN TAB 325 MG TAB PO PRN (09:22)
--- NOTE | 2024-05-13 11:01 | P.DS ---
Providers Expected date of discharge: 05/13/24 Attending physician: Tristan Goncalves Primary care physician: Ellis Amin - Discharge Diagnosis(es) (1) Postmenopausal bleeding Current Visit: Yes Status: Acute Hospital Course: The patient is a 63-year-old 3 para 1-0-2-1 who presented to the office with recurrent postmenopausal bleeding. She was treated for this approximately 2 years ago at which time she had an endometrial polyp or prolapsing fibroid which was dealt with surgically. She did fine after that until recently when she began having significant bleeding again. Examination found what appears to be a very sessile endocervical polyp which could not be removed in the office. Given the recurrence of the bleeding, the patient has requested definitive therapy with hysterectomy. She was taken to the operating room where she underwent da Misael robotically assisted laparoscopic hysterectomy with bilateral salpingo-oophorectomy and diagnostic cystoscopy in uncomplicated fashion. Her postoperative course has been unremarkable with vital signs remaining stable and her temperature was afebrile throughout. She was tolerating a regular diet by the morning of postoperative day #1 and performing all activities of daily living. She therefore was discharged home to follow-up in the office in 2 weeks for recheck in 8 weeks routinely. Discharge instructions included calling for any significantly increased bleeding, fever, pain, incisional complaints, urinary or GI complaints, or anything else that concerned her. She was specifically instructed to have nothing in the vagina for at least 8 weeks time to include intercourse. She understood her instructions and agrees to follow-up as noted above. Discharge medications included any normal home medications as well as a prescription for Tylenol 3, 1-2 p.o. every 6 hours as needed pain, #20 dispensed with no refills. She was additionally instructed to use [id number] analgesic pain medications as needed. Discharge hemoglobin and hematocrit were 13.7 and 42.6 respectively. Procedures: #1. Da Misael robotically assisted laparoscopic hysterectomy with bilateral salpingo-oophorectomy #2. Diagnostic cystoscopy Patient Condition at Discharge: Stable Plan - Discharge Summary Discharge Rx Participant: Yes New Discharge Prescriptions: No Action Levothyroxine Sodium [Synthroid] 100 mcg PO QAM Bisoprolol/Hydrochlorothiazide [Ziac 10-6.25 MG] 1 tab PO QAM Ibuprofen [Motrin] 600 mg PO Q6HR PRN #40 day PRN Reason: Pain Dextroamphetamine/Amphetamine [Dextroamphetamine/Amphetamine 20 mg Tab] 20 mg PO BID Discharge Medication List Bisoprolol/Hydrochlorothiazide [Ziac 10-6.25 MG] 1 tab PO QAM 05/09/17 [History] Ibuprofen [Motrin] 600 mg PO Q6HR PRN #40 day 05/09/17 [Rx] Levothyroxine Sodium [Synthroid] 100 mcg PO QAM 05/09/17 [History] Dextroamphetamine/Amphetamine [Dextroamphetamine/Amphetamine 20 mg Tab] 20 mg PO BID 05/09/24 [History] Follow up Appointment(s)/Referral(s): Tristan Goncalves MD [STAFF PHYSICIAN] - 05/25/24 9:15 am Discharge Disposition: HOME SELF-CARE
[2024-05-13] MEDS: IBUPROFEN 600 MG TAB PO PRN (12:03)
== END 2024-05-13 13:45 | disposition home or self-care (01) ==
LOC: OR 05:51 → 4FBP 09:44 → OR 05-13 13:45
PROVIDERS: ATTEND Obstetrics & Gynecology
DX: N84.0 Polyp of corpus uteri (principal); D25.2 Subserosal leiomyoma of uterus; N83.8 Other noninflammatory disorders of ovary, fallopian tube and broad ligament; N88.8 Other specified noninflammatory disorders of cervix uteri; G89.18 Other acute postprocedural pain; E07.9 Disorder of thyroid, unspecified; I10 Essential (primary) hypertension; F41.9 Anxiety disorder, unspecified; F10.90 Alcohol use, unspecified, uncomplicated; Z79.899 Other long term (current) drug therapy; Z79.890 Hormone replacement therapy; Z90.722 Acquired absence of ovaries, bilateral
CPT/HCPCS: 58571; S2900; 85025; 88307